=== PATIENT | male | born 1990 | race Two or more races ===

== ENCOUNTER 2023-07-20 08:38 | Emergency (ER) | payer OTHER ==
[~2023-07-20] VITALS: Ht 170.2 cm; Wt 101.8 kg
[2023-07-20] MEDS ORDERED: DEXT60TA4 PO (11:31)
[2023-07-20 11:44] VITALS: BP 122/75; PULSE 86; RESP 19; TEMP 98.4; O2SAT 96
[2023-07-20] MEDS: predniSONE 20 MG TAB PO ONE (11:52)
[2023-07-20 12:14] LABS: COVID19 ANTIGEN SOFIA FIA NEGATIVE (NEGATIVE); Rapid Influenza A Negative (Negative)
[2023-07-20 12:15] LABS: Rapid Influenza B Negative (Negative)
[2023-07-20] MEDS ORDERED: PRED20TA2 PO (12:34)
== END 2023-07-20 12:43 | disposition home or self-care (01) ==
LOC: ER 08:38
DX: J06.9 Acute upper respiratory infection, unspecified (principal); R05.9 Cough, unspecified; R09.81 Nasal congestion; Z20.822 Contact with and (suspected) exposure to COVID-19
CPT/HCPCS: 36415; 71046; 87426; 87804; 99284; J7512